=== PATIENT | female | born 1990 | race African-American/Black ===

== ENCOUNTER 2017-01-18 13:55 | Emergency (ER) | payer OTHER ==
[~2017-01-18] VITALS: Ht 160 cm; Wt 64.0 kg
[~2017-01-18 13:55] MED LIST: ALBU2.5V13 NEB; PRED5TAB48 PO
[2017-01-18] MEDS ORDERED: KETOROLAC 60MG/2ML VIAL IM ONE (15:30)
[2017-01-18 16:08] VITALS: BP 135/82
== END 2017-01-18 17:37 | disposition home or self-care (01) ==
LOC: ER 14:55
DX: M77.9 Enthesopathy, unspecified (principal); J45.909 Unspecified asthma, uncomplicated
CPT/HCPCS: 73110; 81025; 96372; 99284; J1885

== ENCOUNTER 2017-02-22 01:33 | Emergency (ER) | payer OTHER ==
[~2017-02-22] VITALS: Ht 160 cm; Wt 59.0 kg
[2017-02-22 02:38] VITALS: BP 126/83
[2017-02-22] MEDS ORDERED: LORATADINE 10MG TABLET PO SCH (03:00)
== END 2017-02-22 03:17 | disposition home or self-care (01) ==
LOC: ER 01:34
DX: T78.49XA Other allergy, initial encounter (principal); H57.8 Other specified disorders of eye and adnexa; J45.909 Unspecified asthma, uncomplicated
CPT/HCPCS: 99283

== ENCOUNTER 2017-05-02 20:13 | Emergency (ER) | payer OTHER ==
[~2017-05-02] VITALS: Ht 160 cm; Wt 61.0 kg
[2017-05-03] MEDS ORDERED: HYDROCODONE/ACETAMINOPHEN 5/325MG TABLET PO ONE (01:45)
[2017-05-03 04:39] VITALS: BP 153/88
== END 2017-05-03 04:41 | disposition home or self-care (01) ==
LOC: ER 20:13
DX: M25.531 Pain in right wrist (principal); J45.909 Unspecified asthma, uncomplicated
CPT/HCPCS: 29125; 73030; 73080; 73110; 81025; 99284

== ENCOUNTER 2017-05-14 18:37 | Emergency (ER) | payer OTHER ==
[~2017-05-14] VITALS: Ht 160 cm; Wt 61.0 kg
[2017-05-14] MEDS ORDERED: FAMOTIDINE 20MG/2ML VIAL IV STA (22:44)
[2017-05-14] MEDS ORDERED: SODIUM CHLORIDE 0.9% 1,000 ML IV ONE (22:44)
[2017-05-14] MEDS ORDERED: ONDANSETRON HCL 4MG/2ML VIAL IV STA (22:44)
[2017-05-14 23:03] LABS: BASOPHILS % 0.4 % (0.0-2.0); EOSINOPHILS % 1.3 % (0.0-5.0); HEMATOCRIT. 31.3 % (36.0-48.0); HEMOGLOBIN. 10.3 g/dL (12.0-16.0); LYMPHOCYTES % 31.3 % (20.0-50.0); MEAN CORPUSCULAR HEMOGLOBIN 28.3 pg (28.0-32.0); MEAN CORPUSCULAR VOLUME 85.7 fL (81.0-99.0); MEAN PLATELET VOLUME 7.8 fl (7.4-10.4); PLATELET 260 x1000/uL (130-400); RED BLOOD CELL COUNT 3.65 mill/uL (4.2-5.4); RED CELL DISTRIBUTION WIDTH 13.2 % (11.6-14.6)
[2017-05-14 23:12] LABS: HCG SCREEN NEGATIVE
[2017-05-14 23:15] LABS: CARBON DIOXIDE 28 mEq/L (21-32); CHLORIDE 102 mEq/L (98-107)
[2017-05-15] MEDS ORDERED: KETOROLAC 30MG/ML VIAL IV ONE (00:15)
[2017-05-15 01:20] LABS: CLARITY URINE CLEAR (CLEAR); COLOR URINE YELLOW (YELLOW); GLUCOSE URINE NEGATIVE (NEGATIVE); KETONES URINE NEGATIVE (NEGATIVE); LEUKOCYTE ESTERASE URINE NEGATIVE (NEGATIVE); NITRITE URINE NEGATIVE (NEGATIVE); OCCULT BLOOD URINE TRACE (NEGATIVE); PH URINE 6.5 (4.5-8.0); PROTEIN URINE NEGATIVE (NEGATIVE); UROBILINOGEN URINE 0.2 E.U./dL (0.2-1.0)
[2017-05-15 02:01] VITALS: BP 141/89
== END 2017-05-15 01:55 | disposition home or self-care (01) ==
LOC: ER 21:42
DX: R10.31 Right lower quadrant pain (principal); R11.2 Nausea with vomiting, unspecified; D64.9 Anemia, unspecified; J45.909 Unspecified asthma, uncomplicated
CPT/HCPCS: 36415; 74176; 80053; 81001; 83690; 84703; 85025; 96361; 96374; 96375; 99285; J1885; J2405; J3490; J7030; Z7610

== ENCOUNTER 2017-07-06 14:59 | Emergency (ER) | payer MEDICAID, OTHER ==
[~2017-07-06] VITALS: Ht 160 cm; Wt 60.0 kg
[2017-07-06 15:11] VITALS: BP 128/82
== END 2017-07-06 21:25 | disposition left against medical advice (07) ==
LOC: ER 20:48
DX: M54.9 Dorsalgia, unspecified (principal); R10.32 Left lower quadrant pain; Z53.21 Procedure and treatment not carried out due to patient leaving prior to being seen by health care provider

== ENCOUNTER 2017-07-07 20:27 | Emergency (ER) | payer MEDICAID, OTHER ==
[~2017-07-07] VITALS: Ht 160 cm; Wt 53.0 kg
[2017-07-07] MEDS ORDERED: PREDNISONE 20MG TABLET PO STA (21:15)
[2017-07-07] MEDS ORDERED: ALBUTEROL (0.083%) 2.5MG/3ML NEB HHN STA (21:15)
[2017-07-07] MEDS ORDERED: IPRATROPIUM BROMIDE (0.02%) 0.5MG/2.5ML NEB HHN STA (21:15)
[2017-07-07 21:57] LABS: CLARITY URINE CLEAR (CLEAR); COLOR URINE YELLOW (YELLOW); GLUCOSE URINE NEGATIVE (NEGATIVE); KETONES URINE NEGATIVE (NEGATIVE); LEUKOCYTE ESTERASE URINE NEGATIVE (NEGATIVE); NITRITE URINE NEGATIVE (NEGATIVE); OCCULT BLOOD URINE NEGATIVE (NEGATIVE); PROTEIN URINE NEGATIVE (NEGATIVE); SPECIFIC GRAVITY URINE 1.022 (1.005-1.030); UROBILINOGEN URINE 0.2 E.U./dL (0.2-1.0)
[2017-07-07 21:59] LABS: HCG SCREEN NEGATIVE
[2017-07-07] MEDS ORDERED: KETOROLAC 60MG/2ML VIAL IM ONE (23:00)
[2017-07-08 00:37] VITALS: BP 128/82
== END 2017-07-08 07:00 | disposition home or self-care (01) ==
LOC: ER 07-08 06:21
DX: J45.909 Unspecified asthma, uncomplicated (principal); R10.9 Unspecified abdominal pain
CPT/HCPCS: 71010; 81003; 84703; 94640; 96372; 99285; J1885; J7512; J7611; Z7610

== ENCOUNTER 2017-12-25 12:12 | Emergency (ER) | payer MEDICAID, OTHER ==
[~2017-12-25] VITALS: Ht 160 cm; Wt 59.0 kg
[2017-12-25] MEDS ORDERED: PREDNISONE 20MG TABLET PO STA (12:28)
[2017-12-25] MEDS ORDERED: ALBUTEROL (0.083%) 2.5MG/3ML NEB HHN STA ×2 (12:28→14:54)
[2017-12-25] MEDS ORDERED: IPRATROPIUM BROMIDE (0.02%) 0.5MG/2.5ML NEB HHN STA ×2 (12:28→14:54)
[2017-12-25] MEDS ORDERED: MAGNESIUM 2 G PREMIX 50 ML IV ONE (13:30)
[2017-12-25] MEDS ORDERED: RACEPINEPHRINE 2.25% 0.5ML NEB VIAL ONE (13:40)
[2017-12-25] MEDS ORDERED: IPRATROPIUM BROMIDE (0.02%) 0.5MG/2.5ML NEB ONE (13:41)
[2017-12-25] MEDS ORDERED: ALBUTEROL (0.083%) 2.5MG/3ML NEB ONE (13:41)
[2017-12-25] MEDS ORDERED: RACEPINEPHRINE 2.25% 0.5ML NEB VIAL HHN ONE (14:30)
[2017-12-25 17:05] VITALS: BP 115/54
== END 2017-12-25 17:20 | disposition home or self-care (01) ==
LOC: ER 13:18
DX: J45.901 Unspecified asthma with (acute) exacerbation (principal); G43.909 Migraine, unspecified, not intractable, without status migrainosus
CPT/HCPCS: 71045; 81025; 94644; 96365; 99285; J3475; J7512; J7611

== ENCOUNTER 2018-04-24 11:24 | Emergency (ER) | payer MEDICAID ==
[~2018-04-24] VITALS: Ht 162.6 cm; Wt 61.0 kg
[2018-04-24 11:39] VITALS: BP 130/93
[2018-04-24] MEDS ORDERED: FLUORESCEIN SODIUM 1MG/STRIP LEFTEYE ONE (11:45)
[2018-04-24] MEDS ORDERED: TETRACAINE 0.5% OPHTH DROPS 4ML LEFTEYE ONE (11:45)
== END 2018-04-24 14:11 | disposition home or self-care (01) ==
LOC: ER 11:24
DX: H10.32 Unspecified acute conjunctivitis, left eye (principal)
CPT/HCPCS: 99283

== ENCOUNTER 2018-07-21 15:11 | Emergency (ER) | payer MEDICAID ==
[~2018-07-21] VITALS: Ht 160 cm; Wt 52.0 kg
[2018-07-21 15:24] VITALS: BP 125/89
== END 2018-07-21 19:51 | disposition left against medical advice (07) ==
LOC: ER 15:11
DX: R07.9 Chest pain, unspecified (principal); Z53.21 Procedure and treatment not carried out due to patient leaving prior to being seen by health care provider
CPT/HCPCS: 93005; 99283

== ENCOUNTER 2024-02-04 11:48 | Emergency (ER) | payer MEDICAID, OTHER ==
[~2024-02-04] VITALS: Ht 160 cm; Wt 68.5 kg
[2024-02-04 11:57] VITALS: O2SAT 100
[2024-02-04 12:18] LABS: HEMATOCRIT. 34.3 % (36.0-48.0); HEMOGLOBIN. 11.6 g/dL (12.0-16.0); MEAN CORPUSCULAR HEMOGLOBIN 30.3 pg (28.0-32.0); MEAN CORPUSCULAR HGB CONC 33.9 g/dL (31.0-37.0); MEAN CORPUSCULAR VOLUME 89.3 fL (81.0-99.0); MEAN PLATELET VOLUME 7.8 fl (7.4-10.4); PLATELET 283 x1000/uL (130-400); RED BLOOD CELL COUNT 3.85 mill/uL (4.2-5.4); RED CELL DISTRIBUTION WIDTH 12.9 % (11.6-14.6); WHITE BLOOD COUNT 16.4 x1000/uL (4.5-11.0)
[2024-02-04] MEDS ORDERED: DEXAMETHASONE 4MG/ML 1ML VIAL IV ONE (12:30)
[2024-02-04] MEDS ORDERED: KETOROLAC 15MG/ML VIAL IV ONE (12:30)
[2024-02-04] MEDS ORDERED: CLINDAMYCIN 600 MG in DEXTROSE 5% WATER 50 ML IV ONE (12:30)
[2024-02-04 12:34] LABS: DIFFERENTIAL COMMENT 1
[2024-02-04] MEDS: CLINDAMYCIN 600MG PREMIX 50 ML IV NR (13:00)
[2024-02-04 13:01] LABS: ALANINE AMINOTRANSFERASE < 7 IU/L (10-49); ALBUMIN 4.7 g/dL (3.2-4.8); ASPARTATE AMINOTRANSFERASE 12 IU/L (<34); BILIRUBIN TOTAL 0.6 mg/dL (0.1-1.0); CARBON DIOXIDE 21 mEq/L (21-32); CHLORIDE 106 mEq/L (98-107); CREATININE 0.7 mg/dL (0.6-1.0); GLUCOSE 101 mg/dL (70-105); POTASSIUM 3.4 mEq/L (3.5-5.1); PROTEIN TOTAL 8.1 g/dL (6.0-8.3); SODIUM 136 mEq/L (136-145)
[2024-02-04 13:02] LABS: UREA NITROGEN BLOOD < 5 mg/dL (9-23)
[2024-02-04 13:05] LABS: PLATELET ESTIMATE NORMAL
[2024-02-04] MEDS: SODIUM CHLORIDE 0.9% 500 ML IV ONE (14:10)
[2024-02-04] MEDS: DEXAMETHASONE 4MG/ML 1ML VIAL IV NR (14:53)
[2024-02-04] MEDS: KETOROLAC 15MG/ML VIAL IV NR (14:53)
[2024-02-04 15:27] LABS: CLARITY URINE CLEAR (CLEAR); COLOR URINE DARK YELLOW (YELLOW); GLUCOSE URINE NEGATIVE (NEGATIVE); KETONES URINE 3+ (NEGATIVE); LEUKOCYTE ESTERASE URINE NEGATIVE (NEGATIVE); NITRITE URINE NEGATIVE (NEGATIVE); OCCULT BLOOD URINE 3+ (NEGATIVE); PROTEIN URINE 2+ (NEGATIVE); SPECIFIC GRAVITY URINE 1.035 (1.005-1.030)
[2024-02-04 15:41] LABS: BACTERIA URINE 1+; RBC URINE 15-25 /hpf (0-2); SQUAMOUS EPITHELIAL CELL URINE 1+ /lpf (RARE/1+); WBC URINE 0-2 /hpf (0-2); YEAST URINE FEW
[2024-02-04 15:44] VITALS: BP 171/98; PULSE 71; RESP 16; TEMP 99.2
[2024-02-04] MEDS ORDERED: CLIN-194 MT (16:50)
[2024-02-04] MEDS ORDERED: IBUP-2029 MT (16:50)
[2024-02-04] MEDS ORDERED: IOHEXOL-300 100 ML BOTTLE ONE (23:47)
== END 2024-02-04 16:57 | disposition home or self-care (01) ==
LOC: ER 11:48
DX: J02.9 Acute pharyngitis, unspecified (principal); J45.909 Unspecified asthma, uncomplicated
CPT/HCPCS: 99285; 96365; 70491; 96375; 96366; 80053; 81003; 81025; 87430; 85025; 36415; Q9967; J1100; J1885; J3490; J7030; J7060

== ENCOUNTER 2025-10-13 09:12 | Emergency (ER) | payer OTHER ==
[~2025-10-13] VITALS: Ht 170.2 cm; Wt 73.0 kg
[~2025-10-13 09:12] MED LIST changes: +CLIN-194 MT; +IBUP-1455 MT
[2025-10-13 09:15] VITALS: TEMP 97.5; O2SAT 98
[2025-10-13] MEDS: ACETAMINOPHEN 325MG TABLET PO ONE (11:07)
[2025-10-13] MEDS: IBUPROFEN 600MG TABLET PO ONE (12:10)
[2025-10-13 12:11] VITALS: BP 147/83; PULSE 60; RESP 17; O2SAT 100
== END 2025-10-13 12:16 | disposition home or self-care (01) ==
LOC: ER 09:12
DX: S09.8XXA Other specified injuries of head, initial encounter (principal); M25.572 Pain in left ankle and joints of left foot; M25.562 Pain in left knee; M25.512 Pain in left shoulder; I10 Essential (primary) hypertension; J45.909 Unspecified asthma, uncomplicated; V89.2XXA Person injured in unspecified motor-vehicle accident, traffic, initial encounter; Y92.410 Unspecified street and highway as the place of occurrence of the external cause; Y93.89 Activity, other specified; Y99.8 Other external cause status
CPT/HCPCS: 73030; 73080; 73562; 73610; 81025; 99284